=== PATIENT | female | born 2000 | race Caucasian/White ===

== ENCOUNTER 2018-09-17 04:10 | Emergency (ER) | payer OTHER ==
[~2018-09-17] VITALS: Ht 162.6 cm; Wt 54.4 kg
[2018-09-17] MEDS ORDERED: CONCEPT DHA CA1 EACH PO (08:37)
== END 2018-09-17 08:58 | disposition home or self-care (01) ==
LOC: ER 04:10
DX: O46.8X1 Other antepartum hemorrhage, first trimester (principal); Z34.01 Encounter for supervision of normal first pregnancy, first trimester

== ENCOUNTER 2018-09-19 16:07 | Emergency (ER) | payer OTHER ==
[~2018-09-19] VITALS: Ht 162.6 cm; Wt 56.7 kg
[~2018-09-19 16:07] MED LIST: CONCEPT DHA CA1 EACH PO
[2018-09-20] MEDS ORDERED: KETO10TA2 PO (04:42)
== END 2018-09-19 20:15 | disposition home or self-care (01) ==
LOC: ER 16:07
DX: O03.4 Incomplete spontaneous abortion without complication (principal)

== ENCOUNTER 2018-09-20 02:09 | Emergency (ER) | payer OTHER ==
[~2018-09-20] VITALS: Ht 162.6 cm; Wt 54.4 kg
[2018-09-20] MEDS ORDERED: KETO10TA2 PO (04:42)
== END 2018-09-20 04:47 | disposition home or self-care (01) ==
LOC: ER 02:09
DX: O03.4 Incomplete spontaneous abortion without complication (principal); O26.851 Spotting complicating pregnancy, first trimester

== ENCOUNTER 2018-12-15 22:12 | Emergency (ER) | payer OTHER ==
[~2018-12-15] VITALS: Ht 165.1 cm; Wt 58.1 kg
[~2018-12-15 22:12] MED LIST changes: +KETO10TA2 PO
== END 2018-12-16 02:48 | disposition home or self-care (01) ==
LOC: ER 22:12
DX: O26.891 Other specified pregnancy related conditions, first trimester (principal); R10.2 Pelvic and perineal pain; Z34.01 Encounter for supervision of normal first pregnancy, first trimester

== ENCOUNTER 2019-01-30 17:09 | Emergency (ER) | payer OTHER ==
[~2019-01-30] VITALS: Ht 162.6 cm; Wt 54.0 kg
== END 2019-01-30 19:53 | disposition home or self-care (01) ==
LOC: ER 17:09
DX: O21.0 Mild hyperemesis gravidarum (principal)

== ENCOUNTER 2019-04-29 19:52 | Emergency (ER) | payer OTHER ==
[~2019-04-29] VITALS: Ht 154.9 cm; Wt 54.4 kg
[2019-04-30] MEDS ORDERED: KETO10TA2 PO (02:07)
[2019-04-30] MEDS ORDERED: KEFLEX500 MG PO (02:12)
== END 2019-04-30 02:28 | disposition home or self-care (01) ==
LOC: ER 19:52
DX: N39.0 Urinary tract infection, site not specified (principal); R10.2 Pelvic and perineal pain